=== PATIENT | female | born 1930 ===

== ENCOUNTER 2018-08-04 10:28 | Emergency (ER) | payer OTHER ==
[~2018-08-04] VITALS: Ht 160 cm; Wt 53.5 kg
[2018-08-04] MEDS ORDERED: COZAAR50 MG PO (10:39)
[2018-08-04] MEDS ORDERED: NORVASC2.5 MG PO (10:40)
[2018-08-04] MEDS ORDERED: SYNTHROID50 MCG PO (10:51)
== END 2018-08-04 14:42 | disposition home or self-care (01) ==
LOC: ER 10:28
DX: R42 Dizziness and giddiness (principal); I16.0 Hypertensive urgency; I10 Essential (primary) hypertension